=== PATIENT | female | born 1965 | race Caucasian/White ===

== ENCOUNTER → 2017-04-27 | Outpatient (CLI) | payer OTHER ==
[~2017-04-27] MED LIST: HYDR-757 PO
--- NOTE | 2017-04-27 17:03 | Diagnostic Imaging Report ---
INDICATION: Screening. At this time there are no current complaints. EXAMINATION: Bilateral digital screening mammogram with CAD. The current study was also evaluated with a Computer Aided Detection (CAD) system. COMPARISON: This study was compared to the prior exam of 06/10/2010. FINDINGS: The fibroglandular tissue in both breasts is heterogeneously dense. This does limit the sensitivity of this exam. On the craniocaudad view of the left breast, just lateral to the nipple line and roughly 5 cm from the nipple, there is a 5 mm nodular density. This finding is difficult to identify with certainty on the MLO view but it may be in the inferior outer quadrant of the breast. I would recommend that a compression view of this area be obtained in both the CC and MLO projections for further study. Ultrasound should also be performed. The right breast is unchanged. IMPRESSION: Additional mammographic views and ultrasound of the left breast would be recommended for further evaluation. ACR BI-RADS Category 0: Incomplete. (Needs additional imaging evaluation). Result letter will be mailed to the patient. Note: At least 10% of breast cancer is not imaged by mammography. Dictated by: Dictated on workstation # [id number]
== END ==
LOC: RAD 09:43
PROVIDERS: ATTEND Family Medicine
DX: Z12.31 Encounter for screening mammogram for malignant neoplasm of breast (principal)
CPT/HCPCS: 77067

== ENCOUNTER → 2020-03-31 | Outpatient (CLI) | payer BC, OTHER ==
--- NOTE | 2020-03-31 17:17 | Diagnostic Imaging Report ---
INDICATION: Right shoulder pain. COMPARISON: None available. TECHNIQUE: Three radiographs of the right shoulder dated March 31, 2020. FINDINGS: Moderate degenerative changes of the acromioclavicular joint with inferiorly projecting osteophytes. No acute fracture or dislocation. No destructive osseous process. Minimal degenerative changes of the glenohumeral joint. IMPRESSION: No acute osseous abnormality with scattered degenerative changes, including moderate degenerative changes of the acromioclavicular joint with inferiorly projecting osteophytes. Dictated by: Dictated on workstation # [id number]
== END ==
LOC: RAD 16:17
DX: M19.011 Primary osteoarthritis, right shoulder (principal); M25.711 Osteophyte, right shoulder
CPT/HCPCS: 73030